=== PATIENT | female | born 1970 | race Caucasian/White ===

== ENCOUNTER → 2016-09-07 | Outpatient (CLI) | payer BC ==
--- NOTE | 2016-09-07 17:01 | DX ---
Bilateral Feet, 3 weightbearing views of each foot History: Bilateral pain. First metatarsal phalangeal joint pain when running, bilateral bunions 179.6 71 Findings: Right and Left: There is bilateral hallux valgus angulation measuring 27 degrees on the rig ht and 21 degrees on the left there are bilateral bunions present with a small soft tissue calcificat ion medial to the proximal first metatarsal head on the left and a subcortical cyst with small overly ing hypertrophic ridge on the right. Mineralization is normal. The sesamoid bones are laterally displ aced beneath both first metatarsal heads. Both tibial sesamoid bones are bipartite. The first metatar charlie-phalangeal joints are normal in width. Overall mineralization of both feet is normal. On the late ral views there are hypertrophic ridges of the dorsal first metatarsal heads, right larger than left, with overlying focal soft tissue swelling. On the oblique views there are bilateral bunions with cys tic change right greater than left. Impression: Bilateral bunion deformity, described above.
== END ==
LOC: BMCIMAGING 11:16
PROVIDERS: ATTEND Podiatrist Foot & Ankle Surgery
DX: M21.611 Bunion of right foot (principal); M21.612 Bunion of left foot